=== PATIENT | female | born 1990 | race African-American/Black ===

== ENCOUNTER 2024-03-21 16:54 | Emergency (ER) | payer OTHER, SELFPAY ==
[2024-03-21 17:07] VITALS: BP 114/77; PULSE 67; RESP 16; TEMP 36.9; O2SAT 98; BMI 22.3
--- NOTE | 2024-03-21 17:14 | ED.GENADULT ---
HPI - General Adult General Chief complaint: Upper Respiratory Symptoms Stated complaint: throat and ear pain, body aches, runny nose Time Seen by Provider: 03/21/24 18:24 Source: patient Mode of arrival: ambulatory Limitations: language barrier (Libyan speaking tobacco baler utilized) History of Present Illness HPI narrative: Patient is a 34-year-old female who presents emergency department for evaluation of body aches, nonproductive cough, intermittent headache, nasal congestion over the past few days. Has been experiencing right ear pain with mild decreased hearing for the past week. has been ill with similar symptoms. Denies fevers or chills. No vision changes or neck stiffness. No dizziness or lightheadedness. No chest pain or shortness of breath. No recent travel. No immune compromising conditions. Related Data Previous Rx's ?Medication ?Instructions ?Recorded amoxicillin 875 mg-potassium 1 tab PO BID #19 tabs 03/21/24 clavulanate 125 mg tablet ibuprofen 600 mg tablet 600 mg PO Q8H PRN fever or pain 03/21/24 #30 tabs Allergies Allergy/AdvReac Type Severity Reaction Status Date / Time No Known Allergies Allergy Verified 03/21/24 17:18 Review of Systems Review of Systems: Yes all other systems are reviewed and are negative FORMERLY [facility], [facility] Past Medical History Attestation statement: The following information was validated with the patient. Source: old records reviewed Social History Social History Advance Directives: No Advance Directives Information Provided: No Do you have a plan to hurt others: No Plan Physical Exam ED Vital Signs: Vital Signs - 24 hr 03/21/24 17:07 Temperature 98.5 F Pulse Rate 67 Respiratory Rate 16 Blood Pressure 114/77 Pulse Oximetry 98 Oxygen Delivery Method Room Air BMI result Body Mass Index 22.3 Appearance: Alert.?Oriented to person, place and time. No acute distress.?Normal affect. Eyes: Pupils equal, round and reactive to light.? ENT: Pharynx mildly erythematous no exudates, no tonsillar hypertrophy, uvula is midline, no trismus and no drooling. Left TM is normal. Right TM erythematous and slightly bulging, cerumen present to the external canal but non impacted? Neck: Normal inspection.? Neck supple.? No cervical adenopathy. Full range of motion. ? CVS: Heart sounds normal. Normal heart rate and rhythm.? Pulses normal.?? Respiratory: No respiratory distress.? Lung sounds clear to auscultation bilaterally?? Abdomen: Soft and non-tender. Normoactive bowel sounds. ?? Skin: Skin warm and dry.? Normal skin color.? Extremities: No lower extremity edema. Neuro: Moves all extremities spontaneously. Sensation intact bilaterally. CN II-XII intact. No focal neuro deficits. Ambulates with normal steady gait. Course Course Course Narrative: This is a Rapid Medical Examination (RME) performed by Hansel Rutledge PA-C in triage. Full HPI, ROS, assessment and treatment plan per primary provider in the Main ED. 34 yo Libyan speaking female body aches x1.5 weeks. reports ear congestion and coughing x7 days. no known sick contacts. Plan: viral serology Medical Decision Making Medical Decision Making [facility] Narrative: Patient is a 34-year-old female who presents to the emergency department for evaluation of viral type symptoms and right ear pain as per HPI. Overall she appears well, nontoxic, afebrile. She is without tachycardia tachypnea or hypoxia. Speaking clear full sentences. Has evidence of acute otitis media on the right without spontaneous rupture of the TM, no mastoid tenderness to suggest mastoiditis. No nuchal rigidity, low suspicion for meningitis. Viral serologies are negative, strep a testing is negative. Patient was advised against inserting anything into the ear canal such as Q-tips, as this may increase the risk of rupture to the ear drum, advised to avoid submerging head in water such as with swimming. Advised to take antibiotic with food to prevent stomach upset, Tylenol/ibuprofen for pain management. Outpatient follow-up with primary care provider. Discussed worrisome signs and symptoms that would warrant re-evaluation in the emergency department. All questions answered. Stable for discharge home Differential Diagnosis Differential Diagnoses: The differential diagnosis associated with the presentation includes (See narrative above) Lab Data [facility] Lab Attestation statement: I reviewed the patient's lab results. (See narrative above) Labs: Lab Results 03/21/24 Range/Units 17:32 Influenza Type A (PCR) NEGATIVE (Negative) Influenza Type B (PCR) NEGATIVE (Negative) RSV RNA Qual (PCR) NEGATIVE (Negative) SARS-CoV-2 RNA (RT-PCR) NEGATIVE (Negative) S. pyogenes GrpA JAIME Negative (Negative) Independent Historian Clinical information obtained from an independent historian. History obtained from or confirmed by: Other Prescription Management I considered prescription management with: Pain Medication and Antibiotic Discharge Plan Discharge Clinical Impression: Acute otitis media Qualifiers: Laterality: right Recurrence: non-recurrent Spontaneous tympanic membrane rupture: without spontaneous rupture Patient Disposition: Home, Self-Care Instructions: Ear Infection (ED) Prescriptions: New amoxicillin-pot clavulanate 875-125 mg tablet 1 tab PO BID Qty: 19 0RF ibuprofen 600 mg tablet 600 mg PO Q8H PRN (Reason: fever or pain) Qty: 30 0RF Print Language: Bangladeshi
[2024-03-21 17:46] LABS: IDNOW Serial# 58CA691E; Strep A Nucleic Acid Negative (Negative)
[2024-03-21 18:19] LABS: Influenza A PCR NEGATIVE (Negative); Influenza B PCR NEGATIVE (Negative); Resp Syncy Virus RNA Qual PCR NEGATIVE (Negative); SARS COV2 PCR INHOUSE NEGATIVE (Negative)
[2024-03-21] MEDS: Amoxicillin/Potassium Clav 875 MG TABLET PO (19:29)
[2024-03-21] MEDS: Ibuprofen 600 MG TABLET PO (19:29)
[2024-03-21 19:35] VITALS: BP 114/77; PULSE 67; RESP 16; TEMP 36.9; O2SAT 98
== END 2024-03-21 19:37 | disposition home or self-care (01) ==
PROVIDERS: Physician Assistant Medical; Emergency Provider Emergency Medicine Emergency Medical Services; PCP Advanced Practice Midwife
DX: H66.91 Otitis media, unspecified, right ear (principal); Z03.818 Encounter for observation for suspected exposure to other biological agents ruled out; R05.9 Cough, unspecified
CPT/HCPCS: 0241U; 87651; 99283